=== PATIENT | male | born 1990 | race Caucasian/White ===

== ENCOUNTER 2020-08-25 17:23 | Emergency (ER) | payer OTHER, SELFPAY ==
[2020-08-25 17:30] VITALS: BP 117/78; PULSE 74; RESP 14; TEMP 35.8; O2SAT 97; BMI 28.3
--- NOTE | 2020-08-25 17:55 | HMH.EDUTC ---
[facility] [place] Disposition Clinical Impression: Nausea Disposition: Home, Self-Care Condition on Discharge: Good Instructions: DI for Nausea -- Adult Prescriptions: Ondansetron [Zofran 4mg ODT] 4 mg PO TIDP PRN 10 Days #30 tab PRN Reason: Nausea Transmission Status: Pending to [id number] Referrals: PCP,No [Primary Care Provider] - Time of Disposition: 18:00 Medical Decision Making - Tony Inquiry Pt receiving controlled substance: No Orders (Tests/Meds): ORDERS Category Date Time Status Covid-19 Nasal PCR ([facility]) Routine Lab 08/25/20 17:35 Ordered [facility] [place] HPI - General Stated complaint: cov test Time Seen by Provider: 08/25/20 17:55 - History of Present Illness Provider Complaint: Patient presents with fever, scratchy throat, nausea. Boss had COVID19 a few weeks ago. No vomiting or diarrhea. Onset (ago): day(s) (2) Location: abdomen Relieving factors: none Exacerbating factors: none Associated symptoms: fever/chills, nausea/vomiting Treatments prior to arrival: none - Related Data Previous Rx's Medication Instructions Recorded Ondansetron [Zofran 4mg ODT] 4 mg PO TIDP PRN 10 Days #30 tab 08/25/20 Allergies Allergy/AdvReac Type Severity Reaction Status Date / Time No Known Allergies Allergy Verified 06/09/20 16:[address] [facility] History - Hepatitis A Screen Attestation statement:: This patient has been screened for Hepatitis A risk factors. I have reviewed the patient's past medical history: Yes ROS Obtained: Yes All systems reviewed & no additional complaints - Constitutional Constitutional: Reports fever(s) - Gastrointestinal Gastrointestingal: Reports: nausea Physical Exam - General General appearance: alert, in no apparent distress - Head Head exam: normocephalic - Eye Eye exam: Present: PERRL - ENT ENT exam: Present: normal oropharynx - Chest Chest inspection: Present: normal inspection - Respiratory Respiratory exam: Present: normal lung sounds bilaterally - Cardiovascular Cardiovascular exam: Present: regular rate, normal rhythm - Neurological Exam Neurological exam: Present: alert, oriented X3 - Psychiatric Psychiatric exam: Present: normal affect, normal mood - Skin Skin exam: Present: warm, dry
[2020-08-25 18:29] VITALS: BP 117/78; PULSE 74; RESP 14; TEMP 35.8; O2SAT 97
== END 2020-08-25 18:33 | disposition home or self-care (01) ==
PROVIDERS: Emergency Provider Physician Assistant
DX: Z20.822 Contact with and (suspected) exposure to COVID-19 (principal); J02.9 Acute pharyngitis, unspecified
CPT/HCPCS: 99202; G0463; U0003

== ENCOUNTER 2020-11-08 10:31 | Emergency (ER) | payer OTHER, SELFPAY ==
[2020-11-08 10:48] VITALS: BP 145/92; PULSE 73; RESP 18; TEMP 36.6; O2SAT 99; BMI 29.2
--- NOTE | 2020-11-08 10:54 | HMH.EDUTC ---
[facility] [place] Disposition Clinical Impression: Skin problem Disposition: Home, Self-Care Condition on Discharge: Good Instructions: Clotrimazole Topical Additional Instructions: Make sure to use cream as prescribed Follow up with Family Doctor if no improvement or any worsening of symptoms Follow up with Dermatology if needed Return if needed Straight to ER if any life threatening symptoms Prescriptions: Clotrimazole [Clotrimazole AF] 1 applicatio TP BID #1 tube Transmission Status: Received by [id number] Referrals: Provider,Referral, [Primary Care Provider] - As needed Time of Disposition: 11:14 Medical Decision Making - Tony Inquiry Pt receiving controlled substance: No Tony was queried for this patient: No Vital Signs: 11/08/20 10:48 11/08/20 11:07 Temperature 97.9 F 98.0 F Temperature Source Tympanic Pulse Rate 86 Pulse Rate [Right] 73 Respiratory Rate 18 18 Blood Pressure 132/86 Blood Pressure [Right Arm] 145/92 H Blood Pressure Mean [Right Arm] 109 Blood Pressure Position [Right Arm] Sitting 02 Sat by Pulse Oximetry 99 [facility] [place] HPI - General Stated complaint: redness,itchiness on Lt leg Time Seen by Provider: 11/08/20 10:54 Mode of Arrival: Ambulatory Source of Information: Patient Limitations: No Limitations Description of Symptoms (Recalled from Triage Doc. by RN): pt c/o a rash on his L lower leg forming a walker river around it. this appeared two night ago. rash is warm to touch. HEENT Symptoms (Recalled from RN notes): No Resp Symptoms (Recalled from RN notes): No Skin Symptoms (Recalled from RN notes): Yes (circular rash around lower left leg) MS Symptoms (Recalled from RN notes): No Functional Status (Recalled from RN notes): na - History of Present Illness Provider Complaint: Patient states that he noticed a rash on his left lower leg around his ankle area States that it was itchy and burned when he scratched it states last night at work it looked like it was spreading around his ankle area States States that it was worse a couple days ago but he didnt scratch it last night and it is a little better today - Related Data Previous Rx's Medication Instructions Recorded Ondansetron [Zofran 4mg ODT] 4 mg PO TIDP PRN 10 Days #30 tab 08/25/20 Clotrimazole [Clotrimazole AF] 1 applicatio TP BID #1 tube 11/08/20 Allergies Allergy/AdvReac Type Severity Reaction Status Date / Time No Known Allergies Allergy Verified 11/08/20 10:51 - Worker's Comp Is this a Worker's Comp case?: No H History - Hepatitis A Screen Drug use history?: No High risk sexual behaviors?: No History of sexually transmitted infection?: No Currently employed?: No Childcare worker?: No Do you have indoor plumbing?: Yes Do you have electricity?: Yes Attestation statement:: This patient has been screened for Hepatitis A risk factors. I have reviewed the patient's past medical history: Yes ROS Obtained: Yes All systems reviewed & no additional complaints, Yes Systems reviewed as appropriate & no additional complaints - Constitutional Constitutional: Reports system reviewed and no additional complaints, except as docu - Eyes Eyes: Reports system reviewed and no additional complaints, except as docu - ENT Ears, Nose, Mouth, and Throat: Reports system reviewed and no additional complaints, except as docu - Cardiovascular Cardiovascular: Reports system reviewed and no additional complaints, except as docu - Respiratory Respiratory: Reports system reviewed and no additional complaints, except as docu - Gastrointestinal Gastrointestingal: Reports: system reviewed and no additional complaints, except as docu - Integumentary/Breasts Comments: Dry itchy red rash on his left lower leg for last 2 days Physical Exam - General General appearance: alert, in no apparent distress - Respiratory Respiratory exam: Present: normal lung sounds bilaterally. Absent: respiratory distr
[2020-11-08 11:07] VITALS: BP 132/86; PULSE 86; RESP 18; TEMP 36.7
== END 2020-11-08 11:23 | disposition home or self-care (01) ==
PROVIDERS: Emergency Provider Nurse Practitioner
DX: L98.9 Disorder of the skin and subcutaneous tissue, unspecified (principal)
CPT/HCPCS: 99202; G0463

== ENCOUNTER → 2021-07-25 11:19 | Outpatient (CLI) | payer OTHER, SELFPAY | PROVIDERS: Visit Provider Nurse Practitioner | DX: Z20.822 Contact with and (suspected) exposure to COVID-19 (principal) | CPT/HCPCS: C9803; U0003; U0005 ==

== ENCOUNTER 2021-11-04 11:05 | Emergency (ER) | payer SELFPAY ==
[2021-11-04 11:15] VITALS: BP 137/93; PULSE 71; RESP 18; TEMP 36.8; O2SAT 98; BMI 32.4
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
[2021-11-04 11:37] VITALS: BP 137/93; PULSE 71; RESP 18; TEMP 36.8; O2SAT 98
== END 2021-11-04 11:40 | disposition home or self-care (01) ==
PROVIDERS: Emergency Provider Nurse Practitioner Family
DX: T24.131A Burn of first degree of right lower leg, initial encounter (principal); X08.8XXA Exposure to other specified smoke, fire and flames, initial encounter
CPT/HCPCS: 99212; G0463

== ENCOUNTER 2022-10-14 15:59 | Emergency (ER) | payer SELFPAY ==
[2022-10-14 16:30] VITALS: BP 141/87; PULSE 89; RESP 19; TEMP 36.8; O2SAT 98; BMI 27.6
[2022-10-14 16:44] LABS: UTC Strep Screen (Rapid) Positive (Negative)
[2022-10-14 16:45] VITALS: BP 141/87; PULSE 89; RESP 19; TEMP 36.8; O2SAT 98
--- NOTE | 2022-10-14 16:59 | EXP.UTC ---
Discharge Plan Disposition Patient Disposition: Home, Self-Care Condition: Good Prescriptions Prescriptions: New penicillin V potassium 500 mg tablet 500 mg PO BID Qty: 20 0RF Referrals Follow up/Referrals: Provider,Referral, MD [Primary Care Provider] - See instructions Activity Restrictions/Add. Instructions Additional Instructions/Restrictions: *Monitor Temp, Over the counter Motrin or Tylenol as directed/as needed Tylenol every 4 hours and Motrin every 6 hours (as long as your family doctor has told you that you can take it) for fever or pain. and straight to ER if unable to lower temp less than 101.0 after medication given *Warm salt water gargles may help to soothe the throat *Throat Lozenges? *Warm fluids like tea with honey may help to soothe the throat? *Sleep elevated *Humidifier/Vaporizer *If you did not take Penicillin shot or was unable to, start taking antibiotic immediately and make sure that you take it for the FULL length of time although you should start to feel better in 24-48 hours *change toothbrush and toothpaste 24-48 hours after starting to take antibiotics so you do not reinfect yourself Monitor Temp. Tylenol and/or Ibuprofen as needed. ER if fever is no less than 101 despite alternating Tylenol and Ibuprofen * Encourage fluids, water, Gatorade, powerade, pedialyte if infant/toddler/or child *Cold fluids, popsicles and ice cream may feel good on his throat Follow up IMMEDIATELY for new or worsening symptoms or no Noticeable improvement over the next 48-72 hours. 911 for difficulty breathing or swallowing Clinical Impressions Clinical Impression: Strep throat Stand Alone Forms Stand Alone Forms: Work/School Release Instructions Patient Instructions: DI for Strep Throat, Strep Throat Discharge ED Provider: Letty Lawrence [facility] [place] General Stated complaint: Sore throat, headache, throat swollen Mode of Arrival: Ambulatory Source of Information: Patient Limitations: No Limitations Time Seen by Provider: 10/14/22 16:59 Description of Symptoms (Recalled from Triage Doc. by RN): PATIENT C/O SWOLLEN AND SORE THROAT X 2 DAYS HEENT Symptoms (Recalled from RN notes): Yes Resp Symptoms (Recalled from RN notes): No Skin Symptoms (Recalled from RN notes): No MS Symptoms (Recalled from RN notes): No Functional Status (Recalled from RN notes): WNL History of Present Illness Provider Complaint: Patient states that for the last couple of days he has been having sore throat State that he looked in his throat earlier and it looked swollen and had patches of pus on it Related Data Previous Rx's Medication Instructions Recorded penicillin V potassium 500 mg 500 mg PO BID #20 tabs 10/14/22 tablet Allergies Allergy/AdvReac Type Severity Reaction Status Date / Time No Known Allergies Allergy Verified 11/08/20 10:51 Worker's Comp Is this a Worker's Comp case?: No [facility] Disclaimer: The information contained in this section may have been updated after the patient was seen, as this information can be updated by other users. Social History Smoking Status: Unknown if ever smoked alcohol intake: never current occupational status: employed Travel in the last 8 weeks: None ROS Obtained: Yes All systems reviewed & no additional complaints except as documented and Yes Systems reviewed as appropriate & no additional complaints except as documented Constitutional Constitutional: Reports system reviewed and no additional complaints, except as documented, Reports as per HPI and Reports headache(s) ENT Ears, Nose, Mouth, and Throat: Reports system reviewed and no additional complaints, except as documented, Reports as per HPI, Reports headache(s) and Reports sore throat Cardiovascular Cardiovascular: Reports system reviewed and no additional complaints, except as documented and Reports as per HPI Respiratory Respiratory: Reports system reviewed and no addit
== END 2022-10-14 17:10 | disposition home or self-care (01) ==
PROVIDERS: Emergency Provider Nurse Practitioner
DX: J02.0 Streptococcal pharyngitis (principal); R51.9 Headache, unspecified
CPT/HCPCS: 87880; 99212; 99214; G0463

== ENCOUNTER 2022-11-20 11:53 | Emergency (ER) | payer OTHER, SELFPAY ==
--- NOTE | 2022-11-20 11:58 | XR_ITS ---
FINAL REPORT CLINICAL HISTORY: kicked high chair injured right second toe COMPARISON: None FINDINGS: RIGHT FOOT: Three views of the right foot were obtained. There is a vertical fracture of the 3rd proximal phalanx. Fracture line extends into the PIP joint. There is irregularity of the 4th proximal phalanx, nondisplaced fracture not excluded. The joint spaces are intact. There is no soft tissue abnormality. IMPRESSION: Third proximal phalanx fracture. Possible 4th proximal phalanx fracture. Reviewed, Interpreted and Dictated by Malik Bazan III, MD Transcribed by Shelby Covarrubias Authenticated and [facility]
[2022-11-20 11:59] VITALS: BP 134/80; PULSE 64; RESP 18; TEMP 37; O2SAT 100; BMI 31.6
--- NOTE | 2022-11-20 12:14 | EXP.UTC ---
Discharge Plan Disposition Patient Disposition: Home, Self-Care Condition: Good Prescriptions Prescriptions: No Action penicillin V potassium 500 mg tablet 500 mg PO BID Qty: 20 0RF Referrals Follow up/Referrals: Trent Cameron DO [Staff Physician] - See instructions Provider,Referral, [Primary Care Provider] - See instructions Graciela Tse DPM [Staff Physician] - See instructions (call office for appointment) Activity Restrictions/Add. Instructions Additional Instructions/Restrictions: *weight bearing as tolerated *RICE, Rest the extremity, Ice 15-20 minutes 3-4 times daily, Compress- wear the wiliam wrap as discussed as much as possible to help reduce swelling and pain, Elevate the extremity when at rest Walking boot is for support and help control swelling, Be sure that is not to tight but not to loose either *Elevate when resting? *Ibuprofen 600-800mg every 6-8 hours as needed for pain an inflammation. If need something more can take Tylenol in between doses of Ibuprofen to help Immediately follow up with your family doctor for new or worsening of symptoms, or no noticeable improvement over the next 3-5 days Make sure to call and make appointment with ORthopedics or Podiatry for further treatment and evaluation Clinical Impressions Clinical Impression: Closed fracture of toe Qualifiers: Encounter type: initial encounter Toe: lesser toe Phalanx: proximal Fracture alignment: nondisplaced Laterality: right Qualified Code(s): S92.514A - Nondisplaced fracture of proximal phalanx of right lesser toe(s), initial encounter for closed fracture Stand Alone Forms Stand Alone Forms: Work/School Release Instructions Patient Instructions: How to Use Crutches, DI for Toe Fracture, How To Perform RICE (Rest, Ice, Compress, Elevate), How to Use a Walking Boot Discharge ED Provider: Letty Lawrence [facility] [place] HPI General Stated complaint: AO@Home 11/19 RT foot/toe pain Mode of Arrival: Ambulatory Source of Information: Patient Limitations: No Limitations Time Seen by Provider: 11/20/22 12:15 Description of Symptoms (Recalled from Triage Doc. by RN): pt states he tripped over a high chair this am injuring his third toe on his R foot. injury occured the evening of 11/19 HEENT Symptoms (Recalled from RN notes): No Resp Symptoms (Recalled from RN notes): No Skin Symptoms (Recalled from RN notes): No MS Symptoms (Recalled from RN notes): Yes Functional Status (Recalled from RN notes): wnl History of Present Illness Provider Complaint: Patient states that yesterday he was walking through his house when he accidently kicked a chair that his son's highchair was sitting in States that he immediately had pain in his 3rd toe States that he has been having pain and swelling in his toe ever since and hurts when he walks on it Related Data Previous Rx's Medication Instructions Recorded penicillin V potassium 500 mg 500 mg PO BID #20 tabs 10/14/22 tablet Allergies Allergy/AdvReac Type Severity Reaction Status Date / Time No Known Allergies Allergy Verified 11/08/20 10:51 Worker's Comp Is this a Worker's Comp case?: No [facility] Disclaimer: The information contained in this section may have been updated after the patient was seen, as this information can be updated by other users. Social History (Updated 10/14/22 @ 17:06 by Letty Lawrence APRN) Smoking Status: Unknown if ever smoked alcohol intake: never current occupational status: employed Travel in the last 8 weeks: None ROS Obtained: Yes All systems reviewed & no additional complaints except as documented and Yes Systems reviewed as appropriate & no additional complaints except as documented Constitutional Constitutional: Reports system reviewed and no additional complaints, except as documented and Reports as per HPI ENT Ears, Nose, Mouth, and Throat: Reports system reviewed and no additional complaints, except as documented and Reports as per HPI Cardi
[2022-11-20 14:25] VITALS: BP 134/80; PULSE 64; RESP 18; TEMP 37
== END 2022-11-20 14:26 | disposition home or self-care (01) ==
PROVIDERS: Emergency Provider Nurse Practitioner
DX: S92.514A Nondisplaced fracture of proximal phalanx of right lesser toe(s), initial encounter for closed fracture (principal); W22.8XXA Striking against or struck by other objects, initial encounter
CPT/HCPCS: 73630; 99212; 99214; G0463

== ENCOUNTER → 2022-12-11 13:09 | Outpatient (CLI) | payer SELFPAY ==
--- NOTE | 2022-12-11 13:41 | XR_ITS ---
FINAL REPORT CLINICAL HISTORY: Rt foot pain, fx of 3rd digit COMPARISON: 11/20/2022 FINDINGS: Three views show an oblique fracture of the 3rd proximal phalanx without displacement, similar in appearance to the prior study. There is no evidence of callus formation. Remaining osseous structures are unremarkable. The joint spaces appear normal. IMPRESSION: Similar-appearing fracture 3rd proximal phalanx. Reviewed, Interpreted and Dictated by Stevenson Loyd MD Transcribed by Shelby Covarrubias Authenticated and [facility]
== END ==
PROVIDERS: Visit Provider Orthopaedic Surgery
DX: M79.671 Pain in right foot (principal); S92.501A Displaced unspecified fracture of right lesser toe(s), initial encounter for closed fracture
CPT/HCPCS: 73630

== ENCOUNTER 2023-04-30 18:59 | Emergency (ER) | payer OTHER, SELFPAY ==
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
--- NOTE | 2023-04-30 19:07 | HMH.ITSTN ---
DOC DID NOT WANT A PELVIS XRAY WHEN DOING PORTABLE CHEST
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
[2023-04-30 19:10] VITALS: BP 158/99; PULSE 76; RESP 17; TEMP 36.7; O2SAT 98
[2023-04-30 19:16] LABS: POC Glucose,Bedside 131 (70-110)
[2023-04-30 19:16] LABS: Basophils # 0.1 K/mm3 (0-0.2); Basophils % 0.4 % (0.1-2.0); Eosinophils # 0.4 K/mm3 (0.0-0.4); Eosinophils % 2.1 % (0.1-12.0); Hematocrit 46.5 % (42.0-52.0); Hemoglobin 16.3 g/dL (14.1-18.0); Lymphocytes # 2.2 K/mm3 (0.7-4.5); Lymphocytes % 13.7 % (10-50); Mean Corpuscular Hemoglobin 31.1 pg (27.0-31.2); Mean Platelet Volume 8.5 fl (7.4-10.4); Monocytes # 0.8 K/mm3 (0.1-1.0); Monocytes % 5.1 % (1.7-9.3); Neutrophils # 12.8 K/mm3 (1.8-7.8); Neutrophils % 78.6 % (37.0-80.0); Platelet Count 256 K/mm3 (142-424); Red Blood Count 5.23 M/mm3 (4.60-6.20); White Blood Count 16.3 K/mm3 (4.8-10.8)
[2023-04-30 19:19] LABS: MANUAL DIFFERENTIAL MANUAL DIFFERENTIAL (MANUAL DIFF)
[2023-04-30 19:26] LABS: Activated Partial Thrombo Time 26.9 seconds (22.8-30.6); INR 0.96 (0.9-1.1); Prothrombin Time 10.4 seconds (10.1-12.5)
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
[2023-04-30 20:02] LABS: Eosinophils % 1 % (0-3); Lymphocytes % 27 % (10-50); Monocytes % 1 % (2-9); Neutrophils % 71 % (42-76); Platelet Estimate Normal; RBC Morphology Normal; Total Cells Counted 100
[2023-04-30 20:09] VITALS: BP 125/66; PULSE 71; RESP 16; TEMP 36.8; O2SAT 99
[2023-04-30 21:53] LABS: Alanine Aminotransferase 48 U/L (12-78); Albumin/Globulin Ratio 1.6 (1.1-1.8); Alkaline Phosphatase 80 U/L (38-126); Anion Gap 17.3 mEq/L (5-15); Aspartate Amino Transferase 45 U/L (17-59); Bilirubin,Total 0.8 mg/dl (0.2-1.3); Blood Urea Nitrogen 10 mg/dl (9-20); Calcium 9.2 mg/dl (8.4-10.2); Carbon Dioxide 22 mmol/L (22.0-30.0); Chloride 104 mmol/L (98-107); Estimated Glomerular Filt Rate 97 ml/min (>60); GFR (African American) 118 ML/MIN (>60); Globulin 3.2 g/dL (1.3-3.2); Glucose 99 mg/dl (74-100); Potassium 4.3 mmoL/L (3.5-5.1); Sodium 139 mmol/L (136-145); Total Protein,Serum 8.2 g/dl (6.3-8.2)
== END 2023-04-30 20:14 | disposition home or self-care (01) ==
PROVIDERS: Emergency Provider Emergency Medicine
DX: R07.2 Precordial pain (principal); F17.210 Nicotine dependence, cigarettes, uncomplicated; V49.40XA Driver injured in collision with unspecified motor vehicles in traffic accident, initial encounter; Y92.410 Unspecified street and highway as the place of occurrence of the external cause
CPT/HCPCS: 71045; 71275; 80053; 82962; 85007; 85025; 85610; 85730; 99284; Q9967

== ENCOUNTER 2023-05-05 19:08 | Emergency (ER) | payer OTHER, SELFPAY ==
[2023-05-05 19:50] VITALS: BP 140/86; PULSE 80; RESP 19; TEMP 37.1; O2SAT 98; BMI 30.3
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
[2023-05-05 20:45] VITALS: BP 140/86; PULSE 80; RESP 18; TEMP 37.1; O2SAT 98
== END 2023-05-05 20:45 | disposition home or self-care (01) ==
PROVIDERS: Emergency Provider Nurse Practitioner Family
DX: S06.0X0A Concussion without loss of consciousness, initial encounter (principal); S16.1XXA Strain of muscle, fascia and tendon at neck level, initial encounter; M54.2 Cervicalgia; F17.210 Nicotine dependence, cigarettes, uncomplicated; V49.40XA Driver injured in collision with unspecified motor vehicles in traffic accident, initial encounter; Y92.410 Unspecified street and highway as the place of occurrence of the external cause
CPT/HCPCS: 99212; 99214; G0463